=== PATIENT | female | born 1960 ===

== ENCOUNTER → 2018-06-03 | Emergency (ER) | payer OTHER ==
[~2018-06-03] VITALS: Ht 165.1 cm; Wt 104.3 kg
[~2018-06-03] MED LIST: CRESTOR5 MG PO; HYZAAR 100-121 UDTAB PO; KOMBIGLYZE XR1 EAC1; LANTUS SOL100 UNIT/1; LOVAZA1 G PO; NASONEX17 GM NS; NORVASC5 MG; PNEU16DI2; PRAVACHOL80 MG; SYNTHROID150 MCG; SYNTHROID175 MCG PO; ZITHROMAX500 MG PO; ZYRTEC10 MG PO
== END | disposition left against medical advice (07) ==
LOC: ER 13:55
DX: Z53.20 Procedure and treatment not carried out because of patient's decision for unspecified reasons (principal)

== ENCOUNTER 2018-10-30 18:08 | Emergency (ER) | payer OTHER ==
[~2018-10-30] VITALS: Ht 157.5 cm; Wt 108.9 kg
[2018-10-30] MEDS ORDERED: DOXYCYCLINE HY100 MG PO (18:53)
== END 2018-10-30 22:12 | disposition home or self-care (01) ==
LOC: ER 18:08
DX: S60.473A Other superficial bite of left middle finger, initial encounter (principal); L03.012 Cellulitis of left finger; W55.01XA Bitten by cat, initial encounter; Y93.89 Activity, other specified; Y92.89 Other specified places as the place of occurrence of the external cause; Y99.8 Other external cause status

== ENCOUNTER 2018-11-03 07:06 | Inpatient (IN) | payer OTHER ==
[~2018-11-03] VITALS: Ht 162.6 cm; Wt 106.6 kg
[~2018-11-03 07:06] MED LIST changes: +DOXYCYCLINE HY100 MG PO
[2018-11-03] MEDS ORDERED: ATACAND HCT 321 EAC1 (07:27)
[2018-11-03] MEDS ORDERED: PRAVASTATIN SOD20 MG (07:28)
[2018-11-03] MEDS ORDERED: SINGULAIR10 MG (07:30)
[2018-11-05] MEDS ORDERED: AMOX-CLAV 875-1 EACH PO (09:13)
[2018-11-05] MEDS ORDERED: INTESTINEX680 M1 PO (09:13)
[2018-11-05] MEDS ORDERED: PIPERACIL-TAZO4.5 GM IV (09:13)
[2018-11-05] MEDS ORDERED: DOXYCYCLINE HY100 M2 PO (09:13)
[2018-11-05] MEDS ORDERED: VANCOMYCIN HCL1 GM IV (09:13)
[2018-11-09] MEDS ORDERED: TRAM1TAB98 PO (08:46)
[2018-11-09] MEDS ORDERED: AMOX-CLAV 875-1 EACH PO (10:28)
[2018-11-09] MEDS ORDERED: DOXYCYCLINE HY100 M2 PO (10:28)
== END 2018-11-09 09:34 | DRG 514 ==
LOC: ER 07:06 → MEDJ 09:39
PROVIDERS: Orthopaedic Surgery Hand Surgery; ADMIT Internal Medicine
PROC: BP2 Imaging, Non-Axial Upper Bones, Computerized Tomography (CT Scan) (ICD-10-PCS; 2018-11-04)
PROC: 0HBGXZZ Excision of Left Hand Skin, External Approach (ICD-10-PCS; 2018-11-05)
PROC: 0LB80ZZ Excision of Left Hand Tendon, Open Approach (ICD-10-PCS; principal; 2018-11-05 13:45)
DX: M65.842 Other synovitis and tenosynovitis, left hand (principal); L03.012 Cellulitis of left finger; E11.628 Type 2 diabetes mellitus with other skin complications; S61.25 Open bite of finger without damage to nail; W55.01XS Bitten by cat, sequela; E03.8 Other specified hypothyroidism; E11.65 Type 2 diabetes mellitus with hyperglycemia; E66.09 Other obesity due to excess calories; I10 Essential (primary) hypertension; Z88.2 Allergy status to sulfonamides; Z79.4 Long term (current) use of insulin